=== PATIENT | male | born 1985 | race Caucasian/White ===

== ENCOUNTER → 2025-05-21 10:07 | Outpatient (REF) | payer BC, SELFPAY | LOC: MRI 3T 10:07 | PROVIDERS: ATTENDING PHYSICIAN Student in an Organized Health Care Education/Training Program; FAMILY PHYSICIAN Family Medicine | DX: K56.609 Unspecified intestinal obstruction, unspecified as to partial versus complete obstruction (principal) | CPT/HCPCS: 72197; 74183; A9575 ==